=== PATIENT | male | born 1960 | race Caucasian/White ===

== ENCOUNTER 2021-01-06 01:34 | Emergency (ER) | payer SELFPAY ==
[~2021-01-06] VITALS: Ht 175.3 cm; Wt 80.0 kg
[~2021-01-06 01:34] MED LIST: DIAZ2TAB PO
[2021-01-06 01:41] VITALS: BP 127/83
--- NOTE | 2021-01-06 01:45 | NUR ---
THIS IS A 60M BIB EMS FOR [facility] FROM , PT ALSO STS ETOH CONSUMPTION TONIGHT PRIOR TO THE FALL, DENIES HEAD INJ/ TRAUMA/ NO LOC. PT CONNECTED TO MONITORING VSS.
--- NOTE | 2021-01-06 02:40 | NUR ---
PT REDIRECTED BACK TO BED AT THIS TIME, ALFREDO
--- NOTE | 2021-01-06 03:31 | NUR ---
PT RESTING ON MARK NADTeresa, RESP EVEN UNLABORED, PT HAS REMOVED MONITORING
--- NOTE | 2021-01-06 04:13 | NUR ---
PT STANDING IN DOORWAY REQUESTING AN IV AND A BAG OF "ISOLETS" AND VALIUM.
--- NOTE | 2021-01-06 05:40 | NUR ---
PT RESTING ON MARK FUENTES AT THIS TIME. RESP EVEN AND UNLABORED
--- NOTE | 2021-01-06 05:58 | NUR ---
PT FOUND WANDERING HALLS LOOKING INTO PT ROOMS.
--- NOTE | 2021-01-06 06:33 | NUR ---
Patient/Caregiver given discharge instructions and they have confirmed that they understand the instructions. Patient ambulatory with steady gait/ opted for wc out.
== END 2021-01-06 06:34 | disposition home or self-care (01) ==
LOC: ED 06:28
DX: F10.129 Alcohol abuse with intoxication, unspecified (principal); F17.210 Nicotine dependence, cigarettes, uncomplicated; Y90.0 Blood alcohol level of less than 20 mg/100 ml
CPT/HCPCS: 36415; 80320; 99406; G0480

== ENCOUNTER 2021-03-02 18:29 | Emergency (ER) | payer OTHER ==
[~2021-03-02] VITALS: Ht 172.7 cm; Wt 75.0 kg
--- NOTE | 2021-03-02 18:51 | NUR ---
PEDRO LUIS ROBIN WAS KICKED OUT OF THE [facility] TENT FOR BEING AGGRESSIVE THEN CLAIMED SI WITH [facility] THEY AGREED WITH PT THAT HE WOULD GO TH [facility] PT HAS HAD MULTI ABBRASIONS ON ARRIVAL DENIED HI SI AND STS HE IS CON FUSSED ON EXAM NOTE EXTENSIVE OLD EDWARDS ON APPROX 80 % OF HIS BODY
[2021-03-02 18:58] VITALS: BP 103/71
[2021-03-02 19:25] LABS: ANION GAP 11 mmol/L (5-15); CALCIUM 8.5 mg/dL (8.5-10.1); CHLORIDE 108 mmol/L (98-107); SALICYLATE LEVEL 3.1 mg/dL (2.8-20.0)
[2021-03-02 19:27] LABS: ALANINE AMINOTRANSFERASE 64 U/L (12-78); ALKALINE PHOSPHATASE 99 U/L (45-117); BILIRUBIN,TOTAL 0.4 mg/dL (0.2-1.0); CREATININE 0.63 mg/dL (0.7-1.3); TOTAL PROTEIN 8.2 g/dL (6.4-8.2)
[2021-03-02 19:29] LABS: BASOPHILS % (AUTO) 1 % (0-1); EOSINOPHILS % (AUTO) 0 % (1-7); LYMPHOCYTES % (AUTO) 26 % (22-44); MEAN CORPUSCULAR HEMOGLOBIN 30.9 pg (27.5-34.5); MEAN CORPUSCULAR HGB CONC 33.7 g/dL (33.2-36.2); MONOCYTES % (AUTO) 8 % (2-9); NEUTROPHILS % (AUTO) 64 % (42-75); PLATELET COUNT 352 x10^3/uL (130-400); RED BLOOD COUNT 4.43 x10^6/uL (4.38-5.82)
--- NOTE | 2021-03-02 19:30 | NUR ---
PT REMOVED MONITORING, AND WAS SITTING IN WC IN HALLWAY. PT REDIRECTED BACK TO BED, PROVIDED BLANKETS AND BANDAIDS FOR ABRASIONS. NO FURTHER NEEDS AT THIS TIME.
--- NOTE | 2021-03-02 19:45 | NUR ---
PT CONTINUES TO REFUSE MONITORING
[2021-03-02] MEDS ORDERED: POTASSIUM CHLORIDE 20 MEQ TAB.ER.PRT PO ONE (20:00)
--- NOTE | 2021-03-02 20:10 | NUR ---
PT LAYING IN BED EATING SANDWICH FROM BACKPACK, RESP EVEN UNLABORED NO NEEDS AT THIS TIME.
--- NOTE | 2021-03-02 20:38 | NUR ---
PT NOW SLEEPING SOUNDLY RESP EVEN AND UNLABORED
--- NOTE | 2021-03-02 21:30 | NUR ---
TECH AT BEDSIDE FOR EKG, PT STS DOES NOT WANT TECH TO DO EKG AT THIS TIME
--- NOTE | 2021-03-02 22:15 | NUR ---
Patient/Caregiver given discharge instructions and they have confirmed that they understand the instructions. Patient wheeled out in own chair. NAD, all questions answered appropriately, denies additional needs at this time. No personal belongings left in room after discharge.
== END 2021-03-02 22:18 | disposition home or self-care (01) ==
LOC: ED 20:53
DX: F10.129 Alcohol abuse with intoxication, unspecified (principal); Y90.9 Presence of alcohol in blood, level not specified; Z59.0 Homelessness
CPT/HCPCS: 36415; 80053; 80299; 80320; 80329; 85025; 99283; G0480